=== PATIENT | male | born 1960 | race African-American/Black ===

== ENCOUNTER 2019-03-23 01:24 | Inpatient (IN) | payer OTHER, MEDICAID ==
[~2019-03-23] VITALS: Ht 180.3 cm; Wt 84.8 kg
[~2019-03-23 01:24] MED LIST: DOCU-138 PO; INSLAN SQ; INSLIS SQ; NITR1PAT58 TD; PRAV20TA57 PO; TAMS0.4C31 PO; WARF3TAB58 PO; [UNRECOGNIZED DRUG - CODE] PO
[2019-03-23] MEDS ORDERED: SODIUM CHLORIDE 0.9% 1,000 ML IV ONE (01:48)
[2019-03-23] MEDS ORDERED: FAMOTIDINE 20MG/2ML VIAL IV STA (01:48)
[2019-03-23] MEDS ORDERED: METOCLOPRAMIDE HCL 10MG/2ML VIAL IV STA (01:48)
[2019-03-23 02:32] LABS: CHLORIDE 105 mEq/L (98-107)
[2019-03-23 03:04] LABS: BASOPHILS % 0.6 % (0.0-2.0); EOSINOPHILS % 0.1 % (0.0-5.0); HEMATOCRIT. 46.5 % (42.0-52.0); HEMOGLOBIN. 15.7 g/dL (14.0-18.0); LYMPHOCYTES % 12.8 % (20.0-50.0); MEAN CORPUSCULAR HEMOGLOBIN 27.8 pg (28.0-32.0); MEAN PLATELET VOLUME 10.5 fl (7.4-10.4); NEUTROPHILS % 84.5 % (40.0-76.0); PLATELET 257 x1000/uL (130-400); RED BLOOD CELL COUNT 5.67 mill/uL (4.7-6.1); RED CELL DISTRIBUTION WIDTH 15.1 % (11.6-14.6)
[2019-03-23] MEDS ORDERED: DEXTROSE 50% WATER 50ML SYRINGE IV PRN (05:15)
[2019-03-23] MEDS ORDERED: ACETAMINOPHEN 325MG TABLET PO PRN (05:15)
[2019-03-23] MEDS ORDERED: ONDANSETRON HCL 4MG/2ML INJ IV PRN (05:15)
[2019-03-23] MEDS ORDERED: LORAZEPAM 2MG/ML CPJ IV PRN (05:15)
[2019-03-23] MEDS ORDERED: DIPHENHYDRAMINE 50MG/ML VIAL IV PRN (05:15)
[2019-03-23 08:00] VITALS: BP 164/87
[2019-03-23] MEDS: INSULIN LISPRO 100 UNITS/ML SUBCUT SCH ×4 (08:20→20:19)
[2019-03-23] MEDS: BLOOD SUGAR DIAGNOSTIC STRIP TEST SCH ×4 (08:24→20:14)
[2019-03-23 08:30] VITALS: BP 164/87
[2019-03-23] MEDS ORDERED: NITROGLYCERIN OINT 1GM/INCH UDPKT TD SCH (08:45)
[2019-03-23] MEDS: ENOXAPARIN 40MG/0.4ML SYR SUBCUT SCH (09:41)
[2019-03-23] MEDS: FAMOTIDINE 20MG/2ML VIAL IV SCH ×2 (09:41→20:14)
[2019-03-23] MEDS ORDERED: ASPI-1497 PO (10:54)
[2019-03-23] MEDS ORDERED: RIVA1TAB PO (10:54)
[2019-03-23 12:00] VITALS: BP 141/81
[2019-03-23] MEDS: LEVOFLOXACIN 500MG PREMIX 100 ML IV SCH (12:50)
[2019-03-23] MEDS: SODIUM CHLORIDE 0.9% 1,000 ML IV SCH (15:14)
[2019-03-23 16:00] VITALS: BP_SYST 143; BP_SYST 151; BP_DIAS 86; BP_DIAS 93
[2019-03-23 19:01] LABS: CLARITY URINE CLEAR (CLEAR); COLOR URINE YELLOW (YELLOW); KETONES URINE 1+ (NEGATIVE); LEUKOCYTE ESTERASE URINE NEGATIVE (NEGATIVE); NITRITE URINE NEGATIVE (NEGATIVE); OCCULT BLOOD URINE NEGATIVE (NEGATIVE); PH URINE 7.5 (4.5-8.0); PROTEIN URINE TRACE (NEGATIVE); SPECIFIC GRAVITY URINE 1.023 (1.005-1.030)
[2019-03-23 20:00] VITALS: BP 164/90
[2019-03-23] MEDS: CLONIDINE 0.1MG TABLET PO PRN (20:23)
[2019-03-23] MEDS: NITROGLYCERIN OINT 1GM/INCH UDPKT TD SCH (21:57)
[2019-03-23] MEDS ORDERED: INSULIN GLARGINE UD 100 UNITS/ML SYR SUBCUT SCH (22:00)
[2019-03-23] MEDS: INSULIN GLARGINE UD 100 UNITS/ML SYR SUBCUT SCH (22:07)
[2019-03-24] VITALS: BP 158/91
[2019-03-24] MEDS: SODIUM CHLORIDE 0.9% 1,000 ML IV SCH ×2 (03:00→12:00)
[2019-03-24 04:00] VITALS: BP 158/91
[2019-03-24] MEDS: BLOOD SUGAR DIAGNOSTIC STRIP TEST SCH ×4 (06:20→20:48)
[2019-03-24] MEDS: NITROGLYCERIN OINT 1GM/INCH UDPKT TD SCH ×3 (06:22→23:32)
[2019-03-24 07:43] LABS: BASOPHILS % 0.3 % (0.0-2.0); EOSINOPHILS % 1.1 % (0.0-5.0); HEMATOCRIT. 39.3 % (42.0-52.0); HEMOGLOBIN. 13.5 g/dL (14.0-18.0); LYMPHOCYTES % 19.2 % (20.0-50.0); MEAN CORPUSCULAR HEMOGLOBIN 28.2 pg (28.0-32.0); MEAN CORPUSCULAR VOLUME 82.1 fL (80.0-94.0); MEAN PLATELET VOLUME 10.7 fl (7.4-10.4); MONOCYTES % 6.1 % (2.0-8.0); NEUTROPHILS % 73.3 % (40.0-76.0); PLATELET 229 x1000/uL (130-400); RED BLOOD CELL COUNT 4.78 mill/uL (4.7-6.1); RED CELL DISTRIBUTION WIDTH 15.2 % (11.6-14.6)
[2019-03-24] MEDS: INSULIN LISPRO 100 UNITS/ML SUBCUT SCH ×4 (07:50→20:49)
[2019-03-24 08:00] VITALS: BP 130/76
[2019-03-24 08:02] LABS: CHLORIDE 108 mEq/L (98-107)
[2019-03-24 08:16] LABS: PHOSPHORUS 2.4 mg/dL (2.5-4.9)
[2019-03-24] MEDS: ENOXAPARIN 40MG/0.4ML SYR SUBCUT SCH (09:00)
[2019-03-24] MEDS: FAMOTIDINE 20MG/2ML VIAL IV SCH ×2 (09:00→20:48)
[2019-03-24] MEDS: LEVOFLOXACIN 500MG PREMIX 100 ML IV SCH (10:45)
[2019-03-24] MEDS ORDERED: MAGNESIUM 1 G PREMIX 100 ML IV NR (11:30)
[2019-03-24] MEDS ORDERED: POTASSIUM PHOS,M-BASIC-D-BASIC 10 MMOL in DEXT 5% WATER 246.6667 ML IV NR (11:30)
[2019-03-24] MEDS: NIFEDIPINE XL 30MG TAB PO SCH (11:59)
[2019-03-24 12:00] VITALS: BP 147/79
[2019-03-24 16:00] VITALS: BP 157/55
[2019-03-24 20:00] VITALS: BP 135/84
[2019-03-24] MEDS: INSULIN GLARGINE UD 100 UNITS/ML SYR SUBCUT SCH (23:26)
[2019-03-25] VITALS: BP 142/80
[2019-03-25 04:00] VITALS: BP 122/75
[2019-03-25] MEDS: BLOOD SUGAR DIAGNOSTIC STRIP TEST SCH ×4 (06:47→21:20)
[2019-03-25] MEDS: NITROGLYCERIN OINT 1GM/INCH UDPKT TD SCH ×3 (06:50→22:14)
[2019-03-25 08:00] VITALS: BP 127/72
[2019-03-25] MEDS: DUTASTERIDE 0.5MG CAPSULE PO SCH (08:45)
[2019-03-25] MEDS: FAMOTIDINE 20MG/2ML VIAL IV SCH (08:45)
[2019-03-25] MEDS: NIFEDIPINE XL 30MG TAB PO SCH (08:45)
[2019-03-25] MEDS: ENOXAPARIN 40MG/0.4ML SYR SUBCUT SCH (08:46)
[2019-03-25] MEDS: INSULIN LISPRO 100 UNITS/ML SUBCUT SCH ×4 (08:58→21:00)
[2019-03-25] MEDS ORDERED: LEVOFLOXACIN 500MG PREMIX 100 ML IV SCH (11:00)
[2019-03-25 12:00] VITALS: BP 151/87
[2019-03-25 16:00] VITALS: BP 162/88
[2019-03-25 20:00] VITALS: BP 145/80
[2019-03-25] MEDS ORDERED: INSULIN GLARGINE UD 100 UNITS/ML SYR SUBCUT SCH (22:00)
[2019-03-26] VITALS: BP 134/77
[2019-03-26 04:00] VITALS: BP 111/64
[2019-03-26] MEDS: BLOOD SUGAR DIAGNOSTIC STRIP TEST SCH ×2 (06:01→12:19)
[2019-03-26] MEDS: NITROGLYCERIN OINT 1GM/INCH UDPKT TD SCH ×2 (06:01→14:19)
[2019-03-26] MEDS: INSULIN LISPRO 100 UNITS/ML SUBCUT SCH ×2 (06:10→12:19)
[2019-03-26 08:00] VITALS: BP 128/73
[2019-03-26] MEDS: NIFEDIPINE XL 30MG TAB PO SCH (08:46)
[2019-03-26] MEDS: DUTASTERIDE 0.5MG CAPSULE PO SCH (08:46)
[2019-03-26 12:00] VITALS: BP 147/84
[2019-03-26 14:22] VITALS: BP 142/82
[2019-03-26] MEDS: CLONIDINE 0.1MG TABLET PO PRN (15:17)
== END 2019-03-26 15:50 | DRG 249 ==
LOC: ER 01:24 → 6EST 04:10 → EDBEDREQ 04:19 → EDBEDREQTM 04:19 → EDBEDREQSVC 04:19 → ENRESERV 05:33
PROVIDERS: ADMIT Internal Medicine; ATTEND Internal Medicine
DX: K52.9 Noninfective gastroenteritis and colitis, unspecified (principal); E11.40 Type 2 diabetes mellitus with diabetic neuropathy, unspecified; R65.10 Systemic inflammatory response syndrome (SIRS) of non-infectious origin without acute organ dysfunction; I69.354 Hemiplegia and hemiparesis following cerebral infarction affecting left non-dominant side; E78.00 Pure hypercholesterolemia, unspecified; N40.0 Benign prostatic hyperplasia without lower urinary tract symptoms; I10 Essential (primary) hypertension; Z79.01 Long term (current) use of anticoagulants; Z79.82 Long term (current) use of aspirin; Z79.4 Long term (current) use of insulin; Z86.711 Personal history of pulmonary embolism; Z79.899 Other long term (current) drug therapy; Z90.49 Acquired absence of other specified parts of digestive tract; Z86.718 Personal history of other venous thrombosis and embolism
CPT/HCPCS: 36415; 71045; 74176; 80048; 80053; 81003; 82962; 83605; 83735; 84100; 85025; 93970; 96374; 99285; J1650; J1815; J1956; J2405; J2765; J3475; J3490; J7030; J7060